=== PATIENT | female | born 1935 | race Caucasian/White ===

== ENCOUNTER → 2018-02-28 15:56 | Outpatient (CLI) | payer MEDICARE, OTHER, SELFPAY ==
--- NOTE | 2018-02-28 15:59 | DI.RAD.S_ITS ---
PROCEDURE: XR LUMBAR SPINE MIN 4V INDICATIONS: Post laminectomy with chronic but low back pain TECHNIQUE: 5 views of the lumbar spine were acquired. COMPARISON: None. FINDINGS: Bones: 5 nonrib-bearing vertebrae are present. Patient is status post laminectomy at L4 and L5 levels. Straightening of normal lordosis is seen. No acute compression fracture or traumatic spondylolisthesis. 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 No suspicious bony lesions. Soft tissues: Overlying bowel gas pattern is normal. No suspicious soft tissue calcifications. Oblique images: No pars defects. Bilateral neuroforaminal narrowing throughout lumbar spine is noted more prominent at L3-4 and L4-5 levels. IMPRESSION: Prior laminectomy at L4 and L5 levels. Degenerative disc disease throughout lumbar spine. Suggestion of bilateral neuroforaminal narrowing. No gross pars defect. No acute compression fracture or traumatic spondylolisthesis. Dictated by: Griffin Guan M.D. on 02/28/2018 at 16:53 Approved by: Griffin Guan M.D. on 02/28/2018 at 16:54
--- NOTE | 2018-02-28 15:59 | DI.RAD.S_ITS ---
PROCEDURE: XR HIP W PEL IF DONE LT 2V INDICATIONS: Left hip pain TECHNIQUE: AP pelvis with lateral view(s) of the left hip(s). COMPARISON: None. 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 No evidence of avascular necrosis. No fractures or dislocations. Pelvic ring appears intact. No suspicious bony lesions. Soft tissues: The visualized bowel gas pattern is normal. No suspicious soft tissue calcifications. 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 No fracture or dislocation. No evidence of avascular necrosis. Dictated by: Griffin Guan M.D. on 02/28/2018 at 16:51 Approved by: Griffin Guan M.D. on 02/28/2018 at 16:52
== END ==
PROVIDERS: PCP Internal Medicine; Visit Provider Physical Medicine & Rehabilitation
DX: M48.061 Spinal stenosis, lumbar region without neurogenic claudication (principal); M16.0 Bilateral primary osteoarthritis of hip; M25.552 Pain in left hip; M54.5 Low back pain; M51.36 Other intervertebral disc degeneration, lumbar region; G89.29 Other chronic pain; Z98.890 Other specified postprocedural states
CPT/HCPCS: 72110; 73502; 99214

== ENCOUNTER → 2022-03-30 08:46 | Outpatient (CLI) | payer MEDICARE, OTHER, SELFPAY | PROVIDERS: Family Provider Internal Medicine; PCP Internal Medicine; Referring Provider Internal Medicine; Visit Provider Surgery | DX: I87.312 Chronic venous hypertension (idiopathic) with ulcer of left lower extremity (principal); L03.116 Cellulitis of left lower limb; L97.222 Non-pressure chronic ulcer of left calf with fat layer exposed; R60.0 Localized edema; L53.9 Erythematous condition, unspecified; M79.605 Pain in left leg | CPT/HCPCS: 87070; 87075; 87077; 87205; 99204; 99213 ==

== ENCOUNTER → 2022-04-03 15:08 | Outpatient (CLI) | payer MEDICARE, OTHER, SELFPAY | PROVIDERS: Family Provider Internal Medicine; PCP Internal Medicine; Referring Provider Internal Medicine; Visit Provider Surgery | DX: I87.2 Venous insufficiency (chronic) (peripheral) (principal); L97.222 Non-pressure chronic ulcer of left calf with fat layer exposed; M79.605 Pain in left leg | CPT/HCPCS: 29581 ==

== ENCOUNTER → 2022-04-05 12:49 | Outpatient (CLI) | payer MEDICARE, OTHER, SELFPAY | PROVIDERS: Family Provider Internal Medicine; PCP Internal Medicine; Referring Provider Internal Medicine; Visit Provider Surgery | DX: I87.2 Venous insufficiency (chronic) (peripheral) (principal); L03.116 Cellulitis of left lower limb; L97.222 Non-pressure chronic ulcer of left calf with fat layer exposed | CPT/HCPCS: 29581; 99213 ==

== ENCOUNTER → 2022-04-12 14:20 | Outpatient (CLI) | payer MEDICARE, OTHER, SELFPAY | PROVIDERS: Family Provider Internal Medicine; PCP Internal Medicine; Referring Provider Internal Medicine; Visit Provider Surgery | DX: I87.2 Venous insufficiency (chronic) (peripheral) (principal); L97.222 Non-pressure chronic ulcer of left calf with fat layer exposed; L03.116 Cellulitis of left lower limb | CPT/HCPCS: 29581; 99213 ==

== ENCOUNTER → 2022-04-20 13:54 | Outpatient (CLI) | payer MEDICARE, OTHER, SELFPAY | PROVIDERS: Family Provider Internal Medicine; PCP Internal Medicine; Referring Provider Internal Medicine; Visit Provider Nurse Practitioner Family | DX: I87.2 Venous insufficiency (chronic) (peripheral) (principal); L97.222 Non-pressure chronic ulcer of left calf with fat layer exposed; M79.605 Pain in left leg; R60.0 Localized edema | CPT/HCPCS: 99213 ==

== ENCOUNTER → 2022-04-26 13:07 | Outpatient (CLI) | payer MEDICARE, OTHER, SELFPAY | PROVIDERS: Family Provider Internal Medicine; PCP Internal Medicine; Referring Provider Internal Medicine; Visit Provider Surgery | DX: I87.2 Venous insufficiency (chronic) (peripheral) (principal); R60.0 Localized edema; L03.116 Cellulitis of left lower limb | CPT/HCPCS: 99212; 99213 ==

== ENCOUNTER → 2022-05-17 15:00 | Outpatient (CLI) | payer MEDICARE, OTHER, SELFPAY | PROVIDERS: Family Provider Internal Medicine; PCP Internal Medicine; Referring Provider Internal Medicine; Visit Provider Surgery | DX: I87.2 Venous insufficiency (chronic) (peripheral) (principal); L97.811 Non-pressure chronic ulcer of other part of right lower leg limited to breakdown of skin; L97.821 Non-pressure chronic ulcer of other part of left lower leg limited to breakdown of skin; R60.0 Localized edema; L53.9 Erythematous condition, unspecified | CPT/HCPCS: 29581; 87070; 87075; 87205; 99213 ==

== ENCOUNTER → 2022-05-21 15:12 | Outpatient (CLI) | payer MEDICARE, OTHER, SELFPAY | PROVIDERS: Family Provider Internal Medicine; PCP Internal Medicine; Referring Provider Internal Medicine; Visit Provider Surgery | DX: I87.2 Venous insufficiency (chronic) (peripheral) (principal); L97.811 Non-pressure chronic ulcer of other part of right lower leg limited to breakdown of skin; L97.821 Non-pressure chronic ulcer of other part of left lower leg limited to breakdown of skin; R60.0 Localized edema; L53.9 Erythematous condition, unspecified | CPT/HCPCS: 29581 ==

== ENCOUNTER → 2022-05-28 11:56 | Outpatient (CLI) | payer MEDICARE, OTHER, SELFPAY | PROVIDERS: Family Provider Internal Medicine; PCP Internal Medicine; Referring Provider Internal Medicine; Visit Provider Surgery | DX: I87.2 Venous insufficiency (chronic) (peripheral) (principal); L97.811 Non-pressure chronic ulcer of other part of right lower leg limited to breakdown of skin; L97.821 Non-pressure chronic ulcer of other part of left lower leg limited to breakdown of skin; R60.0 Localized edema | CPT/HCPCS: 29581; 99213 ==

== ENCOUNTER → 2022-06-05 13:06 | Outpatient (CLI) | payer MEDICARE, OTHER, SELFPAY | PROVIDERS: Family Provider Internal Medicine; PCP Internal Medicine; Referring Provider Internal Medicine; Visit Provider Surgery | DX: I87.2 Venous insufficiency (chronic) (peripheral) (principal); L97.211 Non-pressure chronic ulcer of right calf limited to breakdown of skin; L97.221 Non-pressure chronic ulcer of left calf limited to breakdown of skin | CPT/HCPCS: 97597; 99212 ==

== ENCOUNTER → 2022-06-19 13:06 | Outpatient (CLI) | payer MEDICARE, OTHER, SELFPAY | PROVIDERS: Family Provider Internal Medicine; PCP Internal Medicine; Referring Provider Internal Medicine; Visit Provider Surgery | DX: I87.2 Venous insufficiency (chronic) (peripheral) (principal); L53.9 Erythematous condition, unspecified | CPT/HCPCS: 99213 ==